=== PATIENT | female | born 1960 | race Caucasian/White ===

== ENCOUNTER 2024-02-27 10:27 | Emergency (ER) | payer BC, MEDICAID ==
[~2024-02-27] VITALS: Ht 162.6 cm; Wt 61.3 kg
[2024-02-27 11:04] LABS: Basophils # (auto) 0 10 ^3/uL (0-0.2); Eosinophils # (auto) 0 10 ^3/uL (0-0.8); Monocytes # (auto) 0.3 10 ^3/uL (0-1.3)
[2024-02-27 11:07] LABS: Eosinophils % (auto) 0.8 % (0.0-7.0); Hematocrit 25.5 % (36.0-46.0); Hemoglobin 7.6 g/dL (12.2-16.2); Lymphocytes # (auto) 1.3 10 ^3/uL (0.4-5.4); Lymphocytes % (auto) 29.2 % (10.0-50.0); Mean Corpuscular Hemoglobin 18.9 pg (28.0-32.0); Mean Corpuscular Hgb Conc. 29.7 g/dL (32.0-36.0); Mean Corpuscular Volume 63.7 fL (80.0-100.0); Monocytes % (auto) 7.1 % (0.0-12.0); Neutrophils # (auto) 2.8 10 ^3/uL (1.6-8.6); Neutrophils % (auto) 61.9 % (37.0-80.0); Platelet Count (auto) 350 10^3/uL (140-450); Red Blood Cells 4.01 10^6/uL (4.0-5.20); Red Cell Distribution Width 23.2 % (11.8-14.3); White Blood Cell 4.5 10^3/uL (4.4-10.8)
[2024-02-27 11:22] LABS: Alanine Aminotransferase 61 U/L (7-40); Albumin 4.2 g/dL (3.2-4.8); Alkaline Phosphatase 276 U/L (46-116); Anion Gap 8 (5-15); Aspartate Aminotransferase 56 U/L (13-40); BUN/Creatinine Ratio 23.7 (10.0-20.0); Blood Urea Nitrogen 27 mg/dL (9-23); Calcium 8.8 mg/dL (8.7-10.4); Carbon Dioxide 19 mmol/L (20-31); Chloride 116 mmol/L (98-107); Glucose 95 mg/dL (74-106); Potassium 4.4 mmol/L (3.5-5.1); Sodium 143 mmol/L (136-145)
[2024-02-27 11:23] LABS: Bilirubin, Total < 0.2 mg/dL (0.2-1.0); Total Protein 6.5 g/dL (5.7-8.2)
[2024-02-27] MEDS: SODIUM CHLORIDE 0.9% 1,000 ML IV ONE (11:45)
[2024-02-27 12:13] VITALS: PULSE 78; RESP 20; O2SAT 98
[2024-02-27] MEDS: HYDROcodone-ACET 5/325MG TAB PO ONE (13:45)
[2024-02-27 14:39] LABS: Hemoglobin 7.5 g/dL (12.2-16.2)
[2024-02-27] MEDS: FERROUS SULFATE 325mg EC TAB PO ONE (15:44)
[2024-02-27 15:58] LABS: Urine Bacteria None Seen /hpf (None Seen)
[2024-02-27 16:00] VITALS: BP 140/83; RESP 16; O2SAT 97
[2024-02-27 16:09] LABS: Urine Blood Negative /uL (Negative); Urine Clarity Clear (Clear); Urine Color Light-Yellow (Yellow); Urine Protein, UAD TRACE (Negative); Urine Specific Gravity 1.018 (1.001-1.035); Urine Urobilinogen Normal (Negative); Urine WBC <1 /hpf (0 - 5)
== END 2024-02-27 18:28 | disposition home or self-care (01) ==
LOC: EDBD 10:27 → ER 10:27
DX: D64.89 Other specified anemias (principal); I10 Essential (primary) hypertension; Z98.84 Bariatric surgery status
CPT/HCPCS: 36415; 80053; 81001; 83605; 84484; 85014; 85018; 85025; 86850; 86900; 86901; 96360; 96361; 99283; J7030

== ENCOUNTER 2024-03-27 07:18 | Emergency (ER) | payer MEDICAID ==
[2024-03-27 07:35] VITALS: TEMP 98.7
--- NOTE | 2024-03-27 07:35 | ED.PDOC ---
Back pain HPI HPI Comments 64 year old female presents to the ED with chief complaint of back pain. Patient reports that she has been experiencing chronic mid-back pain for the past 2 years, worsening over time. Patient relays that she was recently diagnosed with osteoporosis and she also had a fall quite some time ago, but did not visit the ED due to not having insurance at the time. Patient denies any numbness, weakness, neck pain, saddle anesthesia, or recent fall. Time Seen by MD: 07:32 Reviewed Notes: Nurses Notes, Medications, Allergies Allergies: Coded Allergies: NO KNOWN ALLERGIES (Unverified , 02/27/24) Information Source: Patient Mode of Arrival: Ambulatory Timing: Other (Years) Duration: Since onset Location of Back pain: (B) Thoracic Severity: Moderate Prehospital treatment: None Quality: Aching Onset: Spontaneous History of: None Modifying Factors: Nothing Past Medical History Past Medical History (Other): Chronic mid-back pain, Osteoporosis Surgical History: Denies all surgeries FUR BLENDER History: No Pertinent FUR BLENDER History Family History Family History: Reviewed,noncontributory to illness Social History Smoker: Non-Smoker Alcohol: Denies ETOH Use Drugs: Denies Drug Use Lives In: Home Constitutional: denies: chills, diaphoresis, fatigue, fever, malaise, sweats, weakness, others EENTM: denies: blurred vision, double vision, ear bleeding, ear discharge, ear drainage, ear pain, ear ringing, eye pain, eye redness, hearing loss, mouth pain, mouth swelling, nasal discharge, nose bleeding, nose congestion, nose pain, photophobia, tearing, throat pain, throat swelling, voice changes, others Respiratory: denies: cough, hemoptysis, orthopnea, SOB at rest, shortness of breath, SOB with excertion, stridor, wheezing, others Cardiovascular: denies: chest pain, dizzy spells, diaphoresis, Dyspnea on exertion, edema, irregular heart beat, left arm pain, lightheadedness, palpitations, PND, syncope, others Gastrointestinal: denies: abdomen distended, abdominal pain, blood streaked bowels, constipated, diarrhea, dysphagia, difficulty swallowing, hematemesis, melena, nausea, poor appetite, poor fluid intake, rectal bleeding, rectal pain, vomiting, others Genitourinary: denies: abnormal vagina bleeding, burning, dyspareunia, dysuria, flank pain, frequency, hematuria, incontinence, pain, , vagina discharge, urgency, others Neurological: denies: dizziness, fainting, headache, left sided numbness, left sided weakness, numbness, paresthesia, pre-existing deficit, right sided numbness, right sided weakness, seizure, speech problems, tingling, tremors, weakness, others Musculoskeletal: reports: back pain (mid back pain); denies: gout, joint pain, joint swelling, muscle pain, muscle stiffness, neck pain, others Integumetry: denies: bruises, change in color, change in hair/nails, dryness, laceration, lesions, lumps, rash, wounds, others Allergic/Immunocompromised: denies: Difficulty Healing, Frequent Infections, Hives, Itching, others Hematologic/Lymphatic: denies: anemia, blood clots, easy bleeding, easy bruising, swollen glands, others Endocrine: denies: excessive hunger, excessive sweating, excessive thirst, excessive urination, flushing, intolerance to cold, intolerance to heat, unexplained weight gain, unexplained weight loss, others Psychiatric: denies: anxiety, bipolar disorder, depression, hopeless, panic disorder, schizophrenia, sleepless, suicidal, others All Other Systems: Reviewed and Negative Physical Exam General Appearance: Moderate Distress, Normal HEENT: Normal ENT Inspection, PERRL/EOMI Neck: Full Range of Motion, Non-Tender, Normal, Normal Inspection Respiratory: Chest Non-Tender, Lungs Clear, No Accessory Muscle Use, No Respiratory Distress, Normal Breath Sounds Cardiovascular: No Edema, No JVD, No Murmur, No Gallop, Normal Peripheral Pulses, Regular Rate/Rhythm Breast Exam: Deferred Gastrointestinal: No Organomegaly, Non Tender, No Pulsatile Mass, Normal Bowel Sounds, Soft Genitalia: Deferred Pelvic: Deferred Rectal: Deferred Extremities: No calf tenderness, Normal capillary refill, Normal inspection, Normal range of motion, Non-tender, No pedal edema Musculoskeletal : Apperance: Normal Neurologic: Alert, newspaper photojournalist II-XII nml as Tested, No Motor Deficits, Normal Affect, Normal Mood, No Sensory Deficits Cerebellar Function: Normal Reflexes: Normal Skin: Dry, Normal Color, Warm Peripheral Pulses: 3+ Radial (R), 3+ Radial (L) Lymphatic: No Adenopathy Was a procedure done? Was a procedure done?: No Back Pain Differential Dx Differential Diagnosis: Musculoskeletal Pain, Urinary Obstruction, Urolithiasis X-Ray, Labs, Meds, VS Vital Signs Date Time Temp Pulse Resp B/P (MAP) Pulse Ox O2 Delivery O2 Flow Rate FiO2 03/27/24 07:42 87 24 148/81 (103) 99 03/27/24 07:42 87 24 99 Room Air 03/27/24 07:35 98.7 102 18 169/92 (117) 98 98.7 03/27/24 07:35 98.7 102 18 169/92 (117) 98 Current Medications Medications (Trade) Dose Ordered Sig/Sav Route Start Time Stop Time Status Last Admin Ketorolac Tromethamine (Toradol Injection) 60 mg ONCE ONCE IM 03/27/24 07:45 03/27/24 07:46 DC 03/27/24 07:52 Acetaminophen/ Hydrocodone Bitart ([place] 10/325MG Tab) 1 tab ONCE ONCE PO 03/27/24 07:45 03/27/24 07:46 DC 03/27/24 07:53 Patient alert. Chronic back pain. No trauma. Vitals stable. Was given Toradol. Was given [place]. Blood pressure normalized. Pain itself was driving the blood pressure. Reviewed her history. Explained to the patient. Counseled patient on effects of smoking cigarettes for 15 minutes pain Was given prescription of Motrin. Explained to the patient. Was told to follow up with her primary care physician. Was told to come back if there is any problem. Time of 1ST Reevaluation: 08:32 Reevaluation 1ST: Improved Patient Education/Counseling: Diagnosis, Treatment Family Education/Counseling: No Family Present Departure 1 Departure Time of Disposition: 08:12 Impression: Primary Impression: Degenerative disc disease Qualified Codes: M51.379 - Other intervertebral disc degeneration, lumbosacral region without mention of lumbar back pain or lower extremity pain Additional Impression: Musculoskeletal pain Disposition: 01 HOME / SELF CARE / HOMELESS Condition: Good e-Prescriptions Ibuprofen Micronized (MOTRIN TABLET) 600 Mg Tb 600 MG PO TID PRN for 5 Days, #15 TAB *Black box warning-NSAIDS can increase risk of [place] & hypertension, GI irritation, ulceration, bleed, perferation. Do not use post cardiac surgery. Use short duration/lowest effective dose. Prov: TY QUILES MD 03/27/24 Discharged With: Self Critical Care Note Critical Care Time?: No Stability Stability form required: No Heart Score Heart Score: Heart Score Response (Comments) Value History N/A 0 EKG N/A 0 Age N/A 0 Risk Factors N/A 0 Troponin N/A 0 Total 0 I personally scribed for TY QUILES MD ([email or web address]) on 03/27/24 at 07:35. Electronically submitted by Marcelo Bloom ([email or web address]). TY QUILES MD Mar 27, 2024 07:35
[2024-03-27 07:42] VITALS: BP 148/81; PULSE 87; RESP 24; O2SAT 99
[2024-03-27] MEDS: KETOROLAC TROMETH 60MG/2ML VIAL IM ONE (07:52)
[2024-03-27] MEDS: HYDROcodone-ACET 10/325MG TAB PO ONE (07:53)
[2024-03-27] MEDS ORDERED: IBU600T PO (08:13)
== END 2024-03-27 08:26 | disposition home or self-care (01) ==
LOC: ER 07:18
DX: M51.379 Other intervertebral disc degeneration, lumbosacral region without mention of lumbar back pain or lower extremity pain (principal); M79.18 Myalgia, other site; M81.0 Age-related osteoporosis without current pathological fracture; Z59.71 Insufficient health insurance coverage
CPT/HCPCS: 96372; 99283; J1885

== ENCOUNTER 2024-05-01 15:57 | Inpatient (IN) | payer MEDICAID ==
[~2024-05-01] VITALS: Ht 160 cm; Wt 58.5 kg
[~2024-05-01 15:57] MED LIST: IBU600T PO
[2024-05-01] MEDS: HYDROmorphone HCL 2 MG/ML VL/or syr IM ONE (17:13)
--- NOTE | 2024-05-01 18:32 | ED.PDOC ---
Back pain HPI HPI Comments This patient is a 64-year-old female with a history of degenerative disc disease of the lumbar spine who arrives today via EMS due to severe lower back pain concerns that have become unbearable today. Patient denies any saddle paresthesia, but states that the pain radiates down bilateral legs. Patient states she scheduled for a follow up appointment with her specialists on the , but states that the pain is excruciating and she needs assistance. Patient looked to be in severe pain at time of evaluation. Patient was tachycardic and tachypneic at arrival. Chief Complaint: Back Pain Time Seen by MD: 16:54 Primary Care Provider: UNKNOWN Reviewed Notes: Nurses Notes, Telephone Services Sales Representative Notes Allergies: Coded Allergies: NO KNOWN ALLERGIES (Unverified , 02/27/24) Home Meds Active Scripts Ibuprofen Micronized (MOTRIN TABLET) 600 Mg Tb, 600 MG PO TID PRN for 5 Days, #15 TAB *Black box warning-NSAIDS can increase risk of [place] & hypertension, GI irritation, ulceration, bleed, perferation. Do not use post cardiac surgery. Use short duration/lowest effective dose. Prov:TY QUILES MD 03/27/24 Information Source: Patient, Emergency Med Personnel Mode of Arrival: EMS Timing: Hours Duration: Since onset Location of Back pain: (B) Lower back Radiates to: Anterior: (B) Buttocks Severity: Severe Prehospital treatment: None Quality: Sharp, Stabbing Onset: Spontaneous History of: Chronic Back Pain Past Medical History PAST MEDICAL HISTORY: Denies Past Medical History (Other): Degenerative disc disease of the lumbar spine Surgical History: Denies all surgeries SEED SALES MANAGER History: No Pertinent SEED SALES MANAGER History Family History Family History: Reviewed,noncontributory to illness Social History Smoker: Non-Smoker Alcohol: Denies ETOH Use Drugs: Denies Drug Use Lives In: Home Constitutional: denies: chills, diaphoresis, fatigue, fever, malaise, sweats, w eakness, others EENTM: denies: blurred vision, double vision, ear bleeding, ear discharge, ear drainage, ear pain, ear ringing, eye pain, eye redness, hearing loss, mouth pain, mouth swelling, nasal discharge, nose bleeding, nose congestion, nose pain, photophobia, tearing, throat pain, throat swelling, voice changes, others Respiratory: denies: cough, hemoptysis, orthopnea, SOB at rest, shortness of breath, SOB with excertion, stridor, wheezing, others Cardiovascular: denies: chest pain, dizzy spells, diaphoresis, Dyspnea on exertion, edema, irregular heart beat, left arm pain, lightheadedness, palpitations, PND, syncope, others Gastrointestinal: denies: abdomen distended, abdominal pain, blood streaked bowels, constipated, diarrhea, dysphagia, difficulty swallowing, hematemesis, melena, nausea, poor appetite, poor fluid intake, rectal bleeding, rectal pain, vomiting, others Genitourinary: denies: abnormal vagina bleeding, burning, dyspareunia, dysuria, flank pain, frequency, hematuria, incontinence, pain, , vagina di scharge, urgency, others Neurological: denies: dizziness, fainting, headache, left sided numbness, left sided weakness, numbness, paresthesia, pre-existing deficit, right sided numbness, right sided weakness, seizure, speech problems, tingling, tremors, weakness, others Musculoskeletal: reports: back pain; denies: gout, joint pain, joint swelling, muscle pain, muscle stiffness, neck pain, others Integumetry: denies: bruises, change in color, change in hair/nails, dryness, laceration, lesions, lumps, rash, wounds, others Allergic/Immunocompromised: denies: Difficulty Healing, Frequent Infections, Hives, Itching, others Hematologic/Lymphatic: denies: anemia, blood clots, easy bleeding, easy bruising, swollen glands, others Endocrine: denies: excessive hunger, excessive sweating, excessive thirst, excessive urination, flushing, intolerance to cold, intolerance to heat, unexplained weight gain, unexplained weight loss, others Psychiatric: denies: anxiety, bipolar disorder, depression, hopeless, panic disorder, schizophrenia, sleepless, suicidal, others Physical Exam Exam Comments Patient appears much older than her chronology. General Appearance: Normal, Severe Distress (Due to lower back pain concerns) HEENT: Normal ENT Inspection, Pharynx Normal, TMs Normal Neck: Full Range of Motion, Non-Tender, Normal, Normal Inspection Respiratory: Chest Non-Tender, Lungs Clear, No Accessory Muscle Use, No Respiratory Distress, Normal Breath Sounds Cardiovascular: No Edema, No JVD, No Murmur, No Gallop, Normal Peripheral Pulses, Regular Rate/Rhythm Breast Exam: Deferred Gastrointestinal: No Organomegaly, Non Tender, No Pulsatile Mass, Normal Bowel Sounds, Soft Genitalia: Deferred Pelvic: Deferred Rectal: Deferred Extremities: No calf tenderness, Normal capillary refill, No pedal edema Musculoskeletal : Location: Bilateral Extremity Location: Back (Exquisite diffuse bilateral lumbar tenderness to palpation throughout. [id number] hypertonicity appreciated. Patient has significant reduced range of motion. Patient denies any saddle paresthesia.) Apperance: Normal Neurologic: Alert, Normal Affect (But suffering from severe pain), Normal Mood Cerebellar Function: Normal Reflexes: NOT DONE Skin: Dry, Normal Color, Warm Lymphatic: No Adenopathy Was a procedure done? Was a procedure done?: No Back Pain Differential Dx Differential Diagnosis: Other (Degenerative disc disease of the lumbar spine, intractable low back pain ) X-Ray, Labs, Meds, VS Vital Signs Date Time Temp Pulse Resp B/P (MAP) Pulse Ox O2 Delivery O2 Flow Rate FiO2 05/01/24 17:13 120 20 145/82 05/01/24 16:24 98.8 127 24 134/76 (95) 95 Current Medications Medications (Trade) Dose Ordered Sig/Sav Route Start Time Stop Time Status Last Admin Hydromorphone HCl (Dilaudid Injection) 1 mg ONCE ONCE IM 05/01/24 17:15 05/01/24 17:16 DC 05/01/24 17:13 X-Ray, Labs, Meds, VS Comment Patient was dispensed Dilaudid IM with moderate relief. I am concerned that this patient will just return to ED if sent home on oral pain medication. Patient will be admitted for pain management and transferred [facility] until her back pain concerns can be addressed by her surgeon. Time of 1ST Reevaluation: 18:35 Reevaluation 1ST: Improved Consultation: PCP, Surgery Patient Education/Counseling: Diagnosis, Treatment Family Education/Counseling: Diagnosis, Treatment Departure 1 Departure Time of Disposition: 18:35 Impression: Primary Impression: Degenerative joint disease (DJD) of lumbar spine Additional Impression: Intractable back pain Disposition: ADMITTED INPATIENT Condition: Stable Discharged With: Self Critical Care Note Critical Care Time?: No Stability Stability form required: No Heart Score Heart Score: Heart Score Response (Comments) Value History N/A 0 EKG N/A 0 Age N/A 0 Risk Factors N/A 0 Troponin N/A 0 Total 0 RICHY CHINO [facility] May 01, 2024 18:32
[2024-05-01 19:06] LABS: Eosinophils # (auto) 0 10 ^3/uL (0-0.8); Hemoglobin 10.1 g/dL (12.2-16.2); Lymphocytes # (auto) 0.2 10 ^3/uL (0.4-5.4); White Blood Cell 18.1 10^3/uL (4.4-10.8)
[2024-05-01 19:08] LABS: Basophils # (auto) 0 10 ^3/uL (0-0.2); Basophils % (auto) 0.1 % (0.0-2.0); Hematocrit 35.3 % (36.0-46.0); Lymphocytes % (auto) 0.8 % (10.0-50.0); Mean Corpuscular Hemoglobin 20.9 pg (28.0-32.0); Mean Corpuscular Hgb Conc. 28.5 g/dL (32.0-36.0); Mean Corpuscular Volume 73.3 fL (80.0-100.0); Monocytes # (auto) 1.9 10 ^3/uL (0-1.3); Monocytes % (auto) 10.7 % (0.0-12.0); Neutrophils % (auto) 88.4 % (37.0-80.0); Platelet Count (auto) 195 10^3/uL (140-450); Red Blood Cells 4.81 10^6/uL (4.0-5.20); Red Cell Distribution Width 24.7 % (11.8-14.3)
[2024-05-01 19:24] LABS: Anion Gap 15 (5-15); Chloride 107 mmol/L (98-107); Potassium 4.2 mmol/L (3.5-5.1); Sodium 140 mmol/L (136-145)
[2024-05-01 19:30] LABS: BUN/Creatinine Ratio 16.4 (10.0-20.0); Blood Urea Nitrogen 22 mg/dL (9-23)
[2024-05-01 19:31] LABS: Calcium 8.3 mg/dL (8.7-10.4); Carbon Dioxide 18 mmol/L (20-31); Glucose 143 mg/dL (74-106)
[2024-05-01 20:31] LABS: Anisocytosis Moderate; Hypochromia Marked; Platelet Estimate Adequate
[2024-05-01 20:45] VITALS: PULSE 155; RESP 16; O2SAT 94
--- NOTE | 2024-05-01 21:11 | DVHHPRES ---
History of Present Illness Resident Creating Document: MAGDALENO YAO RESIDENT History of Present Illness This is a 64-year-old female with past medical history of hypertension, degenerative disc disease, chronic back pain presented to the ED with a intractable back pain for 1 day prior to this admission. According to the sheela wren she has chronic back pain for last couple of years but this time is severe back pain started yesterday which was sharp pain, 9/10, radiates to the bilateral legs with no aggravating factors and associated with nausea. The patient denies fever, abdominal pain, vomiting, chest pain, palpitation, dizziness, diaphoresis, dysuria, any change in bowel and bladder habit, sick contact or any recent traveling. Past Medical History Hypertension, degenerative disc disease, chronic back pain, anxiety Past Surgical History Gastric bypass surgery, vertebral surgery Family History None Past Social History Lives with granddaughter Used to smoke 10 stick/day for 5 yrs, quit 6 months ago, non alcoholic and marijuana abuse Review of Systems Constitutional: No: Fever, Chills, Sweats, Weakness, Malaise, Other Eyes: No: Pain, Vision change, Conjunctivae inflammation, Eyelid inflammation, Other, Redness ENT: No: Ear pain, Ear discharge, Nose pain, Nose discharge, Nose congestion, Mouth pain, Mouth swelling, Throat pain, Throat swelling, Other Respiratory: No: Cough, Dry, Shortness of breath, SOB with excertion, Wheezing, Hemoptysis, Pleuritic Pain, Sputum, Wheezing, Other Cardiovascular: No: Chest Pain, Palpitations, Orthopnea, Paroxysmal Noc. Dyspnea, Edema, Lt Headedness, Other Gastrointestinal: Nausea; No: Vomiting, Abdominal Pain, Diarrhea, Constipation, Melena, Hematochezia, Other Genitourinary: No Dysuria, No Frequency, No Incontinence, No Hematuria, No Retention, No Other Musculoskeletal: back pain; No: other, neck pain, shoulder pain, arm pain, hand pain, leg pain, foot pain Skin: No: Rash, Lesions, Jaundice, Bruising, Other Neurological: No: Weakness, Numbness, Incoordination, Change in speech, Confusion, Seizures, Other Allergies: Coded Allergies: NO KNOWN ALLERGIES (Unverified , 02/27/24) Exam Vital Signs Vital Signs Date Time Temp Pulse Resp B/P (MAP) Pulse Ox O2 Delivery O2 Flow Rate FiO2 05/01/24 17:13 120 20 145/82 05/01/24 16:24 98.8 95 Exam Physical examination: General Appearance: Alert, Oriented X3, Cooperative, moderate distress . HEENT: Atraumatic, PERRLA, EOMI, Mucous membrane moist/pink Respiratory: Clear to auscultation, Normal air movement Cardiovascular: Regular rate, Normal S1, Normal S2, No murmurs, no chest wall tenderness Abdominal: Normal bowel sounds, Soft, mild tenderness, No hepatospenomegaly, No masses Extremities: No clubbing, No cyanosis, No edema, Normal pulses. Skin: No rashes, No breakdown, No significant lesion Neuro: Normal speech, Strength at 5/5 X4 ext, Normal tone, Sensation intact, grossly intact cranial nerves Psych/Mental Status: Mental status NL, Mood NL Labs/Xrays Labs Test 05/01/24 18:47 Range/Units White Blood Count 18.1 H 4.4-10.8 10^3/uL Red Blood Count 4.81 4.0-5.20 10^6/uL Hemoglobin 10.1 L 12.2-16.2 g/dL Hematocrit 35.3 L 36.0-46.0 % Mean Corpuscular Volume 73.3 L 80.0-100.0 fL Mean Corpuscular Hemoglobin 20.9 L 28.0-32.0 pg Mean Corpuscular Hemoglobin Concent 28.5 L 32.0-36.0 g/dL Red Cell Distribution Width 24.7 H 11.8-14.3 % Platelet Count 195 140-450 10^3/uL Mean Platelet Volume 7.9 6.9-10.8 fL Neutrophils (%) (Auto) 88.4 H 37.0-80.0 % Lymphocytes (%) (Auto) 0.8 L 10.0-50.0 % Monocytes (%) (Auto) 10.7 0.0-12.0 % Eosinophils (%) (Auto) 0.0 0.0-7.0 % Basophils (%) (Auto) 0.1 0.0-2.0 % Neutrophils # (Auto) 16.0 H 1.6-8.6 10 ^3/uL Lymphocytes # (Auto) 0.2 L 0.4-5.4 10 ^3/uL Monocytes # (Auto) 1.9 H 0-1.3 10 ^3/uL Eosinophils # (Auto) 0 0-0.8 10 ^3/uL Basophils # (Auto) 0 0-0.2 10 ^3/uL Nucleated Red Blood Cells 0.0 % Platelet Estimate Adequate Hypochromasia (manual) Marked Anisocytosis (manual) Moderate Microcytosis Moderate Sodium Level 140 136-145 mmol/L Potassium Level 4.2 3.5-5.1 mmol/L Chloride Level 107 98-107 mmol/L Carbon Dioxide Level 18 L 20-31 mmol/L Anion Gap 15 5-15 Blood Urea Nitrogen 22 9-23 mg/dL Creatinine 1.34 H 0.550-1.02 mg/dL Glomerular Filtration Rate Calc 44 >90 mL/min BUN/Creatinine Ratio 16.4 10.0-20.0 Serum Glucose 143 H 74-106 mg/dL Calcium Level 8.3 L 8.7-10.4 mg/dL Troponin I High Sensitivity 522 *H </=34 ng/L Assessment/Plan Assessment/Plan Assessment and plan: # Sepsis likely due to pancreatitis - patient is tachycardic, tachypneic, leukocytosis and elevated lactic acid - patient was given IV normal saline 500 mL bolus - IV Lactated ringer @100 ml/hr - CT abdomen pelvis without contrast demonstrated Stranding around the pancreas questionable pancreatitis - chest x-ray revealed normal study - IV Zosyn 3.375 mg Q 8 hours - Ordered blood culture and urinalysis - Monitor lactic acid # Acute pancreatitis - History of cholecystectomy and lipid profile revealed normal triglyceride level - Ordered LFT, lipase - CT abdomen pelvis without contrast demonstrated Stranding around the pancreas questionable pancreatitis - IV morphine 2 mg q.4 p.r.n. - IV ondansetron 4 mg q.4 p.r.n. - IV Lactated ringer @100 ml/hr # NSTEMI type 2 secondary to above - Troponin trends are 522>817>809 - Ordered EKG and echo - Aspirin 325 mg once and atorvastatin 40 mg at HS - Consulted cardiology # PUD prophylaxis - IV Protonix 40 mg daily. # DVT prophylaxis - Lovenox 40 mg sc daily. Goal of care discussed with the patient for more than 20 minutes full code Plan of treatment discussed with Dr. Toro Plan discussed with: Patient, Other My Orders Orders - MAGDALENO YAO RESIDENT Procedure Category Date Status Time Admit ADMIT 05/01/24 Transmitted 21:01 Code Status CODE 05/01/24 Transmitted 21:01 Sodium Chloride Lock PHA 05/01/24 Logged (Saline Lock Ns) 22:00 Sodium Chloride 0.9% PHA 05/01/24 Logged 21:15 Ondansetron Hcl PHA 05/01/24 Logged (Zofran) 21:15 Fall Risk Precautions [facility] 05/01/[address] 21:01 Complete Blood Count LAB 05/02/24 Verified 04:00 Comprehensive LAB 05/02/24 Verified Metabolic Panel 04:00 Echo 2d Mode Cardiac US 05/01/24 Logged DOP 21:01 Acetaminophen Tablet PHA 05/01/24 Logged (Tylenol Tablet) 21:15 Clear Liq Diet DIET 05/02/24 Transmitted Breakfast Morphine Sulfate PHA 05/01/24 Logged Injection 21:15 Nitroglycerin PHA 05/01/24 Logged Sublingual (Ntrostat 21:15 Morphine Sulfate PHA 05/01/24 Logged Injection 21:15 Oxygen By Nasal RT 05/01/24 Transmitted Cannula 21:01 Stat Ekg For Chest [facility] 05/01/24 In Process Pain 21:01 Notify Of Changes [facility] 05/01/24 In Process From Base 21:01 Molder Apprentice For [facility] 05/01/24 In Process 24 Hours 21:01 Emergency Dysrhythmia [facility] 05/01/24 In Process Protocol 21:01 Rhythm Strips Once [facility] 05/01/24 In Process Every Shift 21:01 B-Type Natriuretic LAB 05/01/24 Transmitted Peptide 21:07 Chest Xray 1 View XY 05/01/24 Transmitted 21:07 Electrocardigram EKG 05/01/24 Transmitted 21:07 Electrocardigram EKG 05/02/24 Transmitted 00:07 Urinalysis LAB 05/01/24 Transmitted 21:07 Drug Screen LAB 05/01/24 Transmitted 21:07 Thyroid Stimulating LAB 05/01/24 Transmitted Hormone 21:07 Urine Creatinine LAB 05/01/24 Transmitted 21:07 Urine Protein LAB 05/01/24 Transmitted 21:07 Urine Sodium LAB 05/01/24 Transmitted 21:07 * Cardiology Consult CONS 05/01/24 Transmitted 21:07 Date of Service: May 01, 2024 Billing Provider: NICOL TORO MD Common Visit Codes: [id number] INP/OBS CARE (HIGH) MAGDALENO YAO RESIDENT May 01, 2024 21:11 NICOL TORO MD May 02, 2024 10:45
[2024-05-01] MEDS ORDERED: MORPHINE SULFATE INJ 2 MG/ml SYRG IV PRN (21:15)
[2024-05-01] MEDS ORDERED: ACETAMINOPHEN 325 MG TAB PO PRN (21:15)
[2024-05-01] MEDS ORDERED: NITROGLYCERIN 0.4 MG SL TAB SL PRN (21:15)
--- NOTE | 2024-05-01 21:25 | DVH ---
EXAMINATION: Chest x-ray 1 view CLINICAL HISTORY: chest pain COMPARISON: None FINDINGS: Lead wires overlie the thorax. No dominant consolidations. The costophrenic angles appear clear. No sizable pleural effusions or pn eumothorax identified. The cardiomediastinal silhouette appears within normal limits given technique. IMPRESSION: No acute cardiopulmonary findings as visualized.
[2024-05-01] MEDS: amLODIPine BESYLATE 5 MG TAB PO ONE (21:43)
[2024-05-01] MEDS: ONDANSETRON HCL 4 MG/2 ML VIAL IV PRN (21:44)
[2024-05-01] MEDS: HYDROmorphone HCL 2 MG/ML VL/or syr IV ONE (21:44)
[2024-05-01] MEDS: SODIUM CHLORIDE 0.9% 1,000 ML IV SCH (22:00)
[2024-05-01] MEDS: PIPERACILLIN-TAZOB 3.375GM 100 ML IV ONE (22:00)
[2024-05-01 22:08] LABS: Lactic Acid w/Reflex 4.7 mmol/L (0.4-2.0)
[2024-05-01] MEDS: SODIUM CHLOR 0.9% PF (SALINE LOCK) 10ML VIAL/SYR IV SCH (22:12)
--- NOTE | 2024-05-01 22:19 | DVH ---
Exam: CT CT AB PEL WO CON-NO ORAL OR IV History: Significant low back pain Comparison Study: None available at time of dictation. TECHNIQUE: Multidetector CT of the abdomen was performed from lung bases to pubic symphysis. Imaging was performed without IV contrast. Axial, coronal and sagittal multiplanar reformats were obtained fr om the axial data set by the technologist. Radiation Dose Information: CT Dose: CTDI volume is 5.32 mGy. Dose-length product is 295.98 mGy*cm FINDINGS: Evaluation of solid organs is limited due to lack of intravenous contrast use. Findings: Lung Bases: No acute or significant lung base finding. Normal heart size. No pleural or pericardial effusion. Liver: The liver is normal in size. No focal lesions. Hepatic steatosis. Gallbladder and Biliary Tree: Gallbladder has been surgically removed. Spleen: Unremarkable Pancreas: Possible stranding around the pancreas correlate lab values for pancreatitis. Adrenal Glands: Unremarkable Kidneys: Kidneys are grossly normal without calculi or hydronephrosis. Bladder: Grossly unremarkable for degree of distention. Bowel: Postop changes in the stomach.. Small bowel and colon are normal in caliber and distribution. The appendix is not visualized; however, no secondary findings of acute appendicitis identified. Ascites: Absent Lymphadenopathy: No mesenteric, retroperitoneal or periportal lymphadenopathy. Abdominal Wall and Mesentery: Postop changes to the anterior abdominal wall consistent with ventral h ernia repair Vasculature: The visualized abdominal aorta is normal in size and caliber. Evaluation of abdominal a nd pelvic vessels is limited due to lack of intravenous contrast. Pelvic Organs: Unremarkable Musculoskeletal: No aggressive focal bony lesions, acute fractures or dislocation. Soft tissues: Unremarkable IMPRESSION: 1. Hepatic steatosis. 2. Stranding around the pancreas questionable pancreatitis. Correlate with lab values. 3. Gallbladder has been surgically removed. 4. Postop changes to the stomach. HS:Y Radiation optimization: All CT scans at this facility use at least one of these dose optimization hernando hniques: automated exposure control mA and/or kV adjustment per patient size (includes targeted exam s where dose is matched to clinical indication) or iterative reconstruction.
[2024-05-01] MEDS: SODIUM CHLORIDE 0.9% 500 ML IV ONE (22:30)
[2024-05-01 22:57] LABS: Triglycerides 95 mg/dL (< 150)
[2024-05-01 22:58] LABS: LDL Cholesterol 63 mg/dL (< 100)
[2024-05-01] MEDS: ASPirin-EC 325mg tab PO ONE (22:59)
[2024-05-01 23:00] LABS: Cholesterol 220 mg/dL (< 200); HDL Cholesterol 137 mg/dL (40-59)
[2024-05-01] MEDS: LACTATED RINGER'S 1,000 ML IV SCH (23:00)
[2024-05-02] MEDS: PANTOPRAZOLE 40 MG/10 ML VIAL INJ IV ONE (00:01)
[2024-05-02 00:22] VITALS: PULSE 115; RESP 18; O2SAT 97
[2024-05-02] MEDS: MORPHINE SULFATE INJ 2 MG/ml SYRG IV PRN (00:46)
[2024-05-02 00:59] LABS: INR 1.03 (0.9-1.15); Partial Thromboplastin Time 25.1 SEC (24.5-34.5); Prothrombin Time 10.9 sec (9.3-11.8)
[2024-05-02 01:00] VITALS: BP 151/95; PULSE 115; RESP 20; TEMP 97.2; O2SAT 98
[2024-05-02 01:16] VITALS: BP 145/86
[2024-05-02] MEDS ORDERED: FERR325T20 PO (02:27)
[2024-05-02] MEDS ORDERED: AMLO1TAB22 PO (02:27)
[2024-05-02] MEDS ORDERED: ALEN70TA74 PO (02:27)
[2024-05-02] MEDS ORDERED: CYCL-611 PO (02:27)
[2024-05-02] MEDS ORDERED: ETOMIDATE (2MG/ML) 20ML VIAL IV ONE (03:51)
[2024-05-02] MEDS ORDERED: MIDAZOLAM DRIP 50 mg/50mL 50 ML IV ONE (03:52)
[2024-05-02 04:00] VITALS: PULSE 76; RESP 26; O2SAT 100
[2024-05-02] MEDS ORDERED: NOREPINEPHRINE 8 MG/250ML KIT 250 ML IV ONE (04:10)
[2024-05-02 04:33] LABS: Eosinophils # (auto) 0 10 ^3/uL (0-0.8); Hemoglobin 9.4 g/dL (12.2-16.2); Mean Corpuscular Hemoglobin 20.7 pg (28.0-32.0); Monocytes # (auto) 0.6 10 ^3/uL (0-1.3)
[2024-05-02] MEDS ORDERED: ATROPINE SULFATE 1 MG/1 ML VIAL IV ONE (04:34)
[2024-05-02 04:35] LABS: Basophils # (auto) 0.1 10 ^3/uL (0-0.2); Basophils % (auto) 0.6 % (0.0-2.0); Lymphocytes # (auto) 1.5 10 ^3/uL (0.4-5.4); Lymphocytes % (auto) 10.7 % (10.0-50.0); Mean Corpuscular Hgb Conc. 26.1 g/dL (32.0-36.0); Mean Corpuscular Volume 79.3 fL (80.0-100.0); Monocytes % (auto) 4.4 % (0.0-12.0); Neutrophils # (auto) 11.8 10 ^3/uL (1.6-8.6); Neutrophils % (auto) 84.3 % (37.0-80.0); Nucleated Red Blood Cells % 0.4 %; Platelet Count (auto) 103 10^3/uL (140-450); Red Blood Cells 4.54 10^6/uL (4.0-5.20)
[2024-05-02 04:36] LABS: Red Cell Distribution Width 25.1 % (11.8-14.3)
--- NOTE | 2024-05-02 04:42 | DVH ---
CHEST RADIOGRAPH Indication: Post Intubation Technique: Single frontal view of the chest was obtained Comparison: XY CHEST XRAY 1 VIEW on DOS: 05/01/24 IMPRESSION: Heart appears normal in size. Endotracheal tube tip approximately 3 cm from the lizeth. Right IJ catheter tip in the superior vena cava. Mild pulmonary vascular congestion. No focal airspace opacity, effusion, or pneumothorax.
[2024-05-02 04:52] LABS: Anisocytosis Moderate; Hypochromia Marked
[2024-05-02 04:54] LABS: Alanine Aminotransferase 25 U/L (7-40); Albumin 3.8 g/dL (3.2-4.8); Anion Gap 21 (5-15); BUN/Creatinine Ratio 13.4 (10.0-20.0); Chloride 101 mmol/L (98-107); Giant Platelets Few; Large Platelets FEW; Ovalocytes FEW; Platelet Estimate Decrea
[2024-05-02 04:55] LABS: Bilirubin, Total 0.4 mg/dL (0.2-1.0)
[2024-05-02 05:02] LABS: Alkaline Phosphatase 207 U/L (46-116); Aspartate Aminotransferase 42 U/L (13-40); Blood Urea Nitrogen 25 mg/dL (9-23); Calcium 7.9 mg/dL (8.7-10.4); Carbon Dioxide 13 mmol/L (20-31); Glucose 303 mg/dL (74-106); Sodium 135 mmol/L (136-145)
[2024-05-02 05:03] LABS: Potassium 5.6 mmol/L (3.5-5.1)
--- NOTE | 2024-05-02 05:06 | DVHNC2 ---
Procedure Note Procedure: Endotracheal intubation Indication: Cardiac arrest Emergent procedure Patient or: Yes Procedure Summary: PROCEDURE SUMMARY: A time out was performed. My hands were washed immediately prior to the procedure. I wore a surgical cap, mask with protective eyewear, gown and gloves throughout the procedure. The patient was placed on a surveillance system monitor including continuous pulse oximetry. Rapid Sequence Intubation was conducted. The patient received _mg of _ for induction and _mg of _ for adequate paralysis. Cricoid pressure was maintained from time induction agent was given to time of cuff balloon inflation. Using a _ laryngoscope and a size _ endotracheal tube with stylet, the patient was intubated on the _ attempt. The stylet was removed and cuff balloon was inflated. Appropriate endotracheal tube position was confirmed by direct visualization of vocal cord passage, fogging of the tube, CO2 colormetric indicator and symmetric breath sounds. The tube was secured at _ cm at the lips. Post intubation chest x-ray is pending at this time. MAGDALENO YAO RESIDENT May 02, 2024 05:06
--- NOTE | 2024-05-02 05:14 | DVHNC2 ---
Intubation Indication: Respiratory Insufficiency Prep: Preoxygenation Pretreated with: Analgesia, Sedation Medicated with: Other Intubation Approach: Orotracheal Intubation size: cm (8) Informed consent obtained: Yes Risks/benefits/alt described: Yes Notes A time out was performed. My hands were washed immediately prior to the procedure. I wore a surgical cap, mask with protective eyewear, gown and gloves throughout the procedure. The patient was placed on a manager college including continuous pulse oximetry. Rapid Sequence Intubation was conducted. The patient received 40_mg of etomidate IV_ for adequate paralysis. Cricoid pressure was maintained from time induction agent was given to time of cuff balloon inflation. Using a _manual laryngoscope and a size _8 endotracheal tube with stylet, the patient was intubated on the 1st_ attempt. The stylet was removed and cuff balloon was inflated. Appropriate endotracheal tube position was confirmed by direct visualization of vocal cord passage, fogging of the tube, CO2 colormetric indicator and symmetric breath sounds. The tube was secured at _22 cm at the lips. Post intubation chest x-ray revealed ETT tube is proper position. Date of Service: May 02, 2024 Billing Provider: NICOL CARDONA MD Common Visit Codes: PROCEDURE ONLY Procedure Codes: [id number] MAGDALENO YAO RESIDENT May 02, 2024 05:14
--- NOTE | 2024-05-02 05:17 | DVHNC2 ---
Central Line Recorder of insertion practice: Store Operations Specialist Occupation of councilperson: Name of councilperson Indication: Hypotension, CVP monitoring Room prepared for procedure: Yes Store Operations Specialist performed hand hygien: Yes Maximal sterile barrier precau: Mask/Eye shield, Sterile gown Skin Preparation: Chlorhexidine gluconate Skin preparation completely dr: Yes Insertion site: Right, Internal jugular Central line catheter type: Ain-ekeabnip-ous dialysis Number of lumens: 3 Central line exchanged over a: No Antiseptic ointment applied to: No Post Assessment: Chest X-Ray, No Pneumothorax Informed consent obtained: Yes Notes Emergent procedure. Medically necessary for administration of vaso-active medications. DESCRIPTION OF PROCEDURE IN DETAIL: The patient was lying in the Trendelenburg position with head turned 30 degrees away from the insertion site. The skin was thoroughly sponged with chlorhexidine and allowed to dry. All persons involved were shielded with hair nets, face masks and sterile gowns. With sterile-gloved hands the right neck area was draped with the large disposable sterile field provided in the pre-manufactured kit. The skin and subcutaneous tissues superficial to the RIGHT internal jugular vein were anesthetized with 2 mL of 1% lidocaine. The RIGHT internal jugular vein was identified on ultrasound from the angle of the mandible down into the supraclavicular fossa using the linear ultrasound probe in the transverse orientation. The carotid artery was identified and avoided utilizing color-flow. The internal jugular vein was then placed in the center of the ultrasound field and compressed for patency. A movement artifact was identified as the needle was advanced through the skin and advanced toward the vessel. A real time hyperechoic signal revealed visualization of vascular needle entry into the lumen as blood was noted to flashback in the syringe. The needle was then held in place while the guide wire was advanced. The needle was then removed. Direct visualization of guide wire location within the vein was noted on ultrasound indicating proper placement and was document in the electronic medical record chart. A skin dilator was advanced over the guidewire and removed, and the triple-lumen catheter was then advanced over the guide wire into proper position. The guide wire was removed and discarded. The ports were aspirated which showed good blood return and then carefully flushed with normal saline. The catheter was stabilized and sutured to the skin with 2-0 silk at 2 anchor points. A sterile bio-patch and dressing was placed over the catheter, including the insertion site. The patient tolerated the procedure well. A chest x-ray was ordered for position confirmation. Post-procedure chest x-ray done. no pneumothorax. Date of Service: May 02, 2024 Billing Provider: NICOL CARDONA MD Common Visit Codes: PROCEDURE ONLY Procedure Codes: 27725-[id number] NON-TUNNEL CV CATH MAGDALENO YAO RESIDENT May 02, 2024 05:17
--- NOTE | 2024-05-02 05:20 | DVHDS2 ---
Summary Date of Admission May 01, 2024 at 21:01 Date and Time of Expiration: May 02, 2024 04:35 (04:35 AM) Reason for Admission: Acute pancreatitis Wounds: No wound was present. Labs/Diagnostic Data: Laboratory Results Test 05/02/24 04:19 05/02/24 00:33 05/01/24 23:20 05/01/24 22:22 White Blood Count 14.0 10^3/uL (4.4-10.8) Red Blood Count 4.54 10^6/uL (4.0-5.20) Hemoglobin 9.4 g/dL (12.2-16.2) Hematocrit 36.0 % (36.0-46.0) Mean Corpuscular Volume 79.3 fL (80.0-100.0) Mean Corpuscular Hemoglobin 20.7 pg (28.0-32.0) Mean Corpuscular Hemoglobin Concent 26.1 g/dL (32.0-36.0) Red Cell Distribution Width 25.1 % (11.8-14.3) Platelet Count 103 10^3/uL (140-450) Mean Platelet Volume 7.9 fL (6.9-10.8) Neutrophils (%) (Auto) 84.3 % (37.0-80.0) Lymphocytes (%) (Auto) 10.7 % (10.0-50.0) Monocytes (%) (Auto) 4.4 % (0.0-12.0) Eosinophils (%) (Auto) 0.0 % (0.0-7.0) Basophils (%) (Auto) 0.6 % (0.0-2.0) Neutrophils # (Auto) 11.8 10 ^3/uL (1.6-8.6) Lymphocytes # (Auto) 1.5 10 ^3/uL (0.4-5.4) Monocytes # (Auto) 0.6 10 ^3/uL (0-1.3) Eosinophils # (Auto) 0 10 ^3/uL (0-0.8) Basophils # (Auto) 0.1 10 ^3/uL (0-0.2) Nucleated Red Blood Cells 0.4 % Platelet Estimate Decrea Large Platelets Few Giant Platelets Few Hypochromasia (manual) Marked Anisocytosis (manual) Moderate Microcytosis Moderate Ovalocytes Few Sodium Level 135 mmol/L (136-145) Potassium Level 5.6 mmol/L (3.5-5.1) Chloride Level 101 mmol/L (98-107) Carbon Dioxide Level 13 mmol/L (20-31) Anion Gap 21 (5-15) Blood Urea Nitrogen 25 mg/dL (9-23) Creatinine 1.86 mg/dL (0.550-1.02) Glomerular Filtration Rate Calc 30 mL/min (>90) BUN/Creatinine Ratio 13.4 (10.0-20.0) Serum Glucose 303 mg/dL (74-106) Calcium Level 7.9 mg/dL (8.7-10.4) Total Bilirubin 0.4 mg/dL (0.2-1.0) Aspartate Amino Transferase (AST) 42 U/L (13-40) Alanine Aminotransferase (ALT) 25 U/L (7-40) Alkaline Phosphatase 207 U/L (46-116) Troponin I High Sensitivity 1099 ng/L (</=34) Total Protein 6.0 g/dL (5.7-8.2) Albumin 3.8 g/dL (3.2-4.8) Prothrombin Time 10.9 sec (9.3-11.8) Prothrombin Time INR 1.03 (0.9-1.15) Activated Partial Thromboplast Time 25.1 SEC (24.5-34.5) Lactic Acid Level 2.7 mmol/L (0.4-2.0) Hemoglobin A1c 4.9 % A1C (<5.7) Triglycerides Level 95 mg/dL (< 150) Cholesterol Level 220 mg/dL (< 200) LDL Cholesterol 63 mg/dL (< 100) HDL Cholesterol 137 mg/dL (40-59) Lipase 509 U/L (12-53) Test 05/01/24 18:47 B-Type Natriuretic Peptide 25.47 pg/mL (0-100) Thyroid Stimulating Hormone (TSH) 0.87 uIU/mL (0.55-4.78) Other Laboratory Tests 05/02/24 04:19 Brief Hx & Hospital Course: This is a 64-year-old female with past medical history of hypertension, degenerative disc disease, chronic back pain presented to the ED with a intractable back pain for 1 day prior to this admission. According to the patient she has chronic back pain for last couple of years but this time severe back pain started yesterday which was sharp pain, 9/10, radiates to the bilateral legs with no aggravating factors and associated with nausea. The patient was tachycardic, CBC revealed leukocytosis, elevated lactic acid, elevated lipase and CT scan of the abdomen pelvis revealed possible pancreatitis. Patient was given IV bolus normal saline followed by lactated ringer, IV Zosyn 3.375 mg Q 8 hours, morphine 2 mg IV q.4 p.r.n., ondansetron 4 mg IV q.4 p.r.n. Initial EKG revealed sinus tachycardia and troponin trends are 522>817>809>979. Echo was ordered and Cardiology was consulted for subsequent evaluation of elevated troponin. The patient was coded at 3:30 a.m. and immediate CPR, ACLS protocol management ,endotracheal intubation and central line was placed. The patient was coded 2 times and pronounced at 4:35 a.m on 05/02/2024. Sister was informed. Final Diagnosis/Problems List Sepsis due to pancreatitis Acute pancreatitis NSTEMI type 2 Cardiopulmonary arrest Discharge Disposition: at Hospital Date of Service: May 02, 2024 Billing Provider: NICOL CARDONA MD Common Visit Codes: 92967-FZC/OBS DISCH DAY >30min MAGDALENO YAO RESIDENT May 02, 2024 05:20 NICOL CARDONA MD May 02, 2024 10:45
[2024-05-02] MEDS ORDERED: PIPERACILLIN-TAZOB 3.375GM 100 ML IV SCH (06:00)
--- NOTE | 2024-05-02 08:11 | RESUS ---
CODE BLUE ASSESSSMENT History of Events History of Events: Pt admitted on for intractable back pain. Per primary RN, pt was using bedside commode when she began to call out in pain. Pt then had what appeared to be a syncopal episode, code assist called. pediatrician states pt pulseless when arrived and code blue called. Initial Information Date: May 02, 2024 Time: 03:45 Location of Arrest: [facility] Witnessed: Yes CPR started initial time: 03:45 CPR started by whom: Hospital Staff Last seen well: 0330 Pre-Hospital Care: Pre-Code Care (inpatient) Type of arrest: Cardiac, Respiratory, Adult, Witnessed Spontaneous Respirations: No Pulse Present: No Monitoring: ECG, Pulse Oximetry, Capnography Crash Cart Opened and Supplies: Yes Airway Ventilation Breathing at Onset: Assisted Oxygen Delivery Method: Ambu-Bag Time of first Assisted Ventila: 03:45 Artificial Ventilation: Bag/Mask Intubation Time: 03:49 Intubation Size: 7.5 cuffed Intubated by: LONNIE Parekh Intubation Attempts: 1 Intubated orally: Yes Tube secured at: 24 (cm @ lip) Cricoid pressure done: Yes CO2 indicator used: Yes Confirmation: Auscultation, Exhaled CO2, Chest X-ray Suctioning (Oral/Tracheal): No Circulation Circulation #1: Time: 03:47 Pulse Rate (adult): 0 Blood Pressure Systolic: 0 Blood Pressure Diastolic: 0 Temperature (Fahrenheit): 95.9 (F; axillary) Circulation #2: Time: 03:51 Pulse Rate (adult): 107 Blood Pressure Systolic: 150 Blood Pressure Diastolic: 85 Circulation Comment: ROSC was achieved at 0349 Circulation #3: Time: 03:54 Pulse Rate (adult): 83 Blood Pressure Systolic: 94 Blood Pressure Diastolic: 70 Circulation #4: Time: 03:57 Pulse Rate (adult): 63 Blood Pressure Systolic: 124 Blood Pressure Diastolic: 95 Circulation #5: Time: 04:19 Pulse Rate (adult): 0 Blood Pressure Systolic: 0 Blood Pressure Diastolic: 0 Circulation Comment: Pulses lost; code blue called Circulation #6: Time: 04:20 Pulse Rate (adult): 0 Blood Pressure Systolic: 0 Blood Pressure Diastolic: 0 Circulation Comment: PEA Circulation #7: Time: 04:24 Pulse Rate (adult): 87 Circulation Comment: ROSC Circulation #8: Time: 04:29 Pulse Rate (adult): 0 Blood Pressure Systolic: 0 Blood Pressure Diastolic: 0 Circulation Comment: Pulses lost; code blue Circulation #9: Time: 04:31 Pulse Rate (adult): 0 Blood Pressure Systolic: 0 Blood Pressure Diastolic: 0 Circulation Comment: PEA Circulation #10: Time: 04:35 Pulse Rate (adult): 0 Blood Pressure Systolic: 0 Blood Pressure Diastolic: 0 Circulation Comment: TOD Procedure - IV Procedure - IV : IV Side: Left IV Location: Wrist IV Catheter Type: Peripheral IV IV Placed: In Hospital IV Gauge: 20 IV Line Care: Saline Flush Comment Placed prior to code Medications & Response Medications and Responses #1: Medication Time: 03:48 ADULT Medications Given ADULT: Epinephrine 1 mg Route of Administration: IV Heart Rate: 0 EKG Rhythm: Asystole Blood Pressure Systolic: 0 Blood Pressure Diastolic: 0 Respiratory Rate: 0 EKG Rhythm: Sinus Tachycardia Medications and Responses #2: Medication Time: 04:19 ADULT Medications Given ADULT: Epinephrine 1 mg Route of Administration: IV Heart Rate: 0 EKG Rhythm: PEA Blood Pressure Systolic: 0 Blood Pressure Diastolic: 0 Respiratory Rate: 0 EKG Rhythm: PEA Medications and Responses #3: Medication Time: 04:22 ADULT Medications Given ADULT: Sodium Bacarbinate 50 meq, Calcium Chloride 10 mL Route of Administration: IV Heart Rate: 0 EKG Rhythm: PEA Blood Pressure Systolic: 0 Blood Pressure Diastolic: 0 Respiratory Rate: 0 EKG Rhythm: PEA Medications and Responses #4: Medication Time: 04:23 ADULT Medications Given ADULT: Epinephrine 1 mg Route of Administration: IV Heart Rate: 0 EKG Rhythm: PEA Blood Pressure Systolic: 0 Blood Pressure Diastolic: 0 Respiratory Rate: 0 EKG Rhythm: Junctional Medications and Responses #5: Medication Time: 04:29 ADULT Medications Given ADULT: Epinephrine 1 mg Route of Administration: IV Heart Rate: 0 EKG Rhythm: PEA Blood Pressure Systolic: 0 Blood Pressure Diastolic: 0 Respiratory Rate: 0 EKG Rhythm: PEA Medications and Responses #6: Medication Time: 04:33 ADULT Medications Given ADULT: Epinephrine 1 mg Route of Administration: IV Heart Rate: 0 EKG Rhythm: PEA Blood Pressure Systolic: 0 Blood Pressure Diastolic: 0 Respiratory Rate: 0 EKG Rhythm: PEA Medications and Responses #7: Medication Time: 04:34 ADULT Medications Given ADULT: Sodium Bacarbinate 50 meq Route of Administration: IV Heart Rate: 0 EKG Rhythm: PEA Blood Pressure Systolic: 0 Blood Pressure Diastolic: 0 Respiratory Rate: 0 EKG Rhythm: PEA Procedure - Central Venous Cat Central venous catheter time: 04:10 Central venous catheter site: Rt IJ Central Venous Catheter Insert: Resident Dr Sandoval Nurses Notes [place] Coma Scale Eye Opening: None (1) [place] Coma Scale Verbal: None (1) [place] Coma Scale Motor: None (1) [place] Total: 3 Pupil Reaction: Non Reactive Bedside Blood Glucose: 211 EKG Rhythm: Sinus Tachycardia (HR 107; EKG performed @ 0354) Nurses Notes - Comment: - 0358: Versed 5mg IVP administered; Versed drip started @ 1mg per protocol - 0412: Levo drip started at 2mcg per protocol - 0413: Xray at bedside - 0417: 1 amp Bicarb IVP administered Time Code Ended Time Code Ended: 04:35 Post Arrest Status: Outcome of code: Unsuccessful Patient pronounced by: Dr Monterroso - Resident Time patient pronounced: 04:35 Family notified: Yes Code Team Present: [employer] - Hospitalist; Dr Shearer - Resident; Dr Monterroso - Resident; Dr Sandoval - Resident; Velasquez Zuniga, RN - pediatrician; Edwige Dockery, RN - pediatrician; Praul Munguia, RN - Livestock Inspector; Viet Zuniga, RN - ICU Charge; Anamika Villanueva RN - Primary RN; Alan Villanueva, RT; Bonnie Chen, RN; Brandy Garcia, RN; Alan Mendez, RN; Eloisa A, CCT Post Resuscitation Neurologica Pupil Size: 6 ROSC Time of ROSC: 03:48 (ROSC again @ 0424) Parul Lugo May 02, 2024 08:11
[2024-05-02] MEDS ORDERED: ASPirin-EC 81 mg tab PO SCH (10:00)
[2024-05-02] MEDS ORDERED: ENOXAPARIN SOD 40 MG/0.4 ML SYRINGE SC SCH (10:00)
[2024-05-02] MEDS ORDERED: PANTOPRAZOLE 40 MG/10 ML VIAL INJ IV SCH (10:00)
[2024-05-02] MEDS ORDERED: amLODIPine BESYLATE 5 MG TAB PO ONE (21:00)
[2024-05-02] MEDS ORDERED: ATORVASTATIN 20 MG TAB PO SCH (22:00)
--- NOTE | 2024-05-04 15:18 | ECG ---
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
--- NOTE | 2024-05-13 13:07 | ECG ---
[facility] Test Date: 2024-05-02 Test Time: 01:59:09 Pat Name: MIMA BIANCHI Department: Respiratoy Room: 0214T B Gender: F Issue Clerk: CHAD : 1960 Requested By: MAGDALENO YAO Order Number: [id number] Reading MD: Jazmyne Mathur Measurements Intervals [place] Rate: 111 P: 41 MO: 184 QRS: 52 QRSD: 88 T: 75 QT: 333 QTc: 453 Interpretive Statements Sinus tachycardia Consider left ventricular hypertrophy Anterior ST elevation probably due to LVH Electronically Signed On 05-13-2024 18:24:33 PST by Jazmyne Mathur Please click the below link to view image of tracing.
--- NOTE | 2024-05-13 13:07 | ECG ---
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
== END 2024-05-02 12:18 | DRG 720 ==
LOC: ER 15:57 → EDBD 15:57 → EDUNIT# 15:57 → OVERFLOW 21:01 → TELE-CENTR 22:02 → TELE 22:02 → TELE-CENTR 23:50 → UNDODISIN 05-02 04:35
PROVIDERS: ATTEND Emergency Medicine
PROC: 5A12012 Performance of Cardiac Output, Single, Manual (ICD-10-PCS; principal; 2024-05-02)
PROC: 5A1935Z Respiratory Ventilation, Less than 24 Consecutive Hours (ICD-10-PCS; 2024-05-02)
PROC: 02HV33Z Insertion of Infusion Device into Superior Vena Cava, Percutaneous Approach (ICD-10-PCS; 2024-05-02)
PROC: 0BH17EZ Insertion of Endotracheal Airway into Trachea, Via Natural or Artificial Opening (ICD-10-PCS; 2024-05-02)
PROC: B548ZZA Ultrasonography of Superior Vena Cava, Guidance (ICD-10-PCS; 2024-05-02)
DX: A41.9 Sepsis, unspecified organism (principal); I46.9 Cardiac arrest, cause unspecified; J96.01 Acute respiratory failure with hypoxia; N17.0 Acute kidney failure with tubular necrosis; I21.A1 Myocardial infarction type 2; K85.90 Acute pancreatitis without necrosis or infection, unspecified; I10 Essential (primary) hypertension; G89.29 Other chronic pain; F41.9 Anxiety disorder, unspecified; M51.369 Other intervertebral disc degeneration, lumbar region without mention of lumbar back pain or lower extremity pain; E87.20 Acidosis, unspecified
CPT/HCPCS: 36415; 36556; 36600; 71045; 74176; 80048; 80053; 80061; 82805; 82962; 83036; 83605; 83690; 83880; 84443; 84484; 85025; 85610; 85730; 87040; 92950; 93005; 94002; G0378; J0461; J2405; J2470; J2543